=== PATIENT | male | born 1940 | race Caucasian/White ===

== ENCOUNTER → 2016-12-30 | Outpatient (CLI) | payer MEDICARE, OTHER ==
[2016-12-30 14:38] LABS: CHLORIDE,CL 108 mmol/L (98-110); SODIUM,NA 141 mmol/L (136-146)
== END ==
LOC: MW.CHNEURO 13:51
PROVIDERS: ATTEND Psychiatry & Neurology Neuromuscular Medicine
DX: G20 Parkinson's disease (principal); R25.9 Unspecified abnormal involuntary movements
CPT/HCPCS: 36415; 80048; 84443; 99204

== ENCOUNTER 2017-10-28 09:41 | Day surgery (SDC) | payer MEDICARE, OTHER ==
[~2017-10-28 09:41] MED LIST: Bupivacaine 0.25%/EPINEPHrine 1:200,000 10 ML SDV INJECT ONE; Bupivacaine 25%/EPINEPHrine/PF 30 ML ONE; Lactated Ringers 1,000 ML IV SCH; Lidocaine 2% 5 ML SDV ONE; Propofol 200 MG/20 ML SDV ONE; Sodium Chloride 0.9% 20 ML ONE; ceFAZolin 1 GM Vial ONE; ceFAZolin 2 GM in Premix Bag 1 BAG IV ONE; fentaNYL 100 MCG/2 ML SDV ONE; traMADol 50 MG Tab PO PRN
[2017-10-28] MEDS ORDERED: Tetracaine 0.5% Ophth Soln 15 ML Bottle ONE (10:11)
--- NOTE | 2017-10-28 10:19 | PCM.PREANE ---
Preanesthetic Assessment - Anesthesia/Transfusion/Family Hx Anesthesia History: Prior Anesthesia Without Reaction Family History of Anesthesia Reaction: No Transfusion History: No Prior Transfusion(s) - Review of Systems General: No Symptoms Pulmonary: No Symptoms Cardiovascular: No Symptoms Gastrointestinal: No Symptoms Neurological: Other (tremor from parkinsons, last dose of meds 8-9 pm yest, on qid meds, stakes no problems if he missed a dose.) Other: Reports: None - Physical Assessment NPO Status Date: 10/27/17 NPO Status Time: 21:00 O2 Sat by Pulse Oximetry: 97 Respiratory Rate: 16 Vital Signs: Last Vital Signs Temp 37.1 C 10/28/17 10:03 Pulse 86 10/28/17 10:03 Resp 16 10/28/17 10:03 BP 134/65 10/28/17 10:03 Pulse Ox 97 10/28/17 10:03 Height: 1.8 m Weight: 73.482 kg - Allergies Allergies/Adverse Reactions: Allergies Allergy/AdvReac Type Severity Reaction Status Date / Time No Known Allergies Allergy Verified 10/25/17 13:45 PreAnesthesia Questionnaire HEENT History: Reports: Cataract Other HEENT History: has upper and lower removable partial dentures Neurological History: Reports: Parkinson's Oncologic (Cancer) History: Reports: Basal Cell Carcinoma - Past Surgical History HEENT Surgical History: Reports: Cataract Surgery Musculoskeletal Surgical History: Reports: Shoulder Surgery Other Musculoskeletal Surgeries/Procedures:: RTCR - SUBSTANCE USE Smoking Status *Q: Never Smoker Number of Drinks Per Day: 2 Recreational Drug Use History: No - HOME MEDS Home Medications: Home Meds Brimonidine Tartrate [Alphagan P 0.1% Ophth Soln] 1 drop EYEBOTH ASDIRECTED [History] Carbidopa/Levodopa [Carbidopa-Levo 25-100 MG ODT] 1 tab PO QID 10/25/17 [History ] Latanoprost [Xalatan 0.005% Ophth Soln] 1 drop EYEBOTH ASDIRECTED 10/25/17 [ History] - CURRENT (IN HOUSE) MEDS Current Meds: Current Medications Lactated Ringer's (Ringers, Lactated) 1,000 mls @ 125 mls/hr IV ASDIRECTED [facility] Last Admin: 10/28/17 10:04 Dose: 125 mls/hr Tramadol HCl (Ultram) 50 mg PO Q4H PRN PRN Reason: Pain Discontinued Medications Bupivacaine HCl/Epinephrine Bitart (Marcaine 0.25%/Epinephrine 1:200,000) 10 ml INJECT ONETIME ONE Stop: 10/28/17 08:01 Cefazolin Sodium (Ancef) Confirm Administered Dose 2 gm .ROUTE .STK-MED ONE Stop: 10/28/17 09:04 Fentanyl (Sublimaze) Confirm Administered Dose 100 mcg .ROUTE .STK-MED ONE Stop: 10/28/17 09:04 Cefazolin Sodium/Dextrose 2 gm (/ Premix) 50 mls @ 100 mls/hr IV ONETIME ONE Stop: 10/28/17 08:29 Bupivacaine HCl/Epinephrine Bitart (Sensorc Mpf 0.25%-Epi [id number]) Confirm Administered Dose 30 mls @ as directed .ROUTE .STK-MED ONE Stop: 10/28/17 07:31 Sodium Chloride (Normal Saline) Confirm Administered Dose 20 mls @ as directed .ROUTE .STK-MED ONE Stop: 10/28/17 09:04 Lidocaine (Xylocaine-Mpf 2%) Confirm Administered Dose 5 ml .ROUTE .STK-MED ONE Stop: 10/28/17 09:03 Propofol (Diprivan 20 Ml) Confirm Administered Dose 200 mg .ROUTE .STK-MED ONE Stop: 10/28/17 09:03 Tetracaine (Tetracaine 0.5% Ophth Soln) Confirm Administered Dose 15 ml .ROUTE .STK-MED ONE Stop: 10/28/17 10:12
[2017-10-28] MEDS ORDERED: fentaNYL 100 MCG/2 ML SDV ONE (10:45)
--- NOTE | 2017-10-28 12:11 | PCM.POSTAN ---
POST ANESTHESIA ASSESSMENT - MENTAL STATUS Mental Status: Alert, Oriented - RESPIRATORY Respiratory Status: Respiratory Rate WNL, Airway Patent, O2 Saturation Stable - CARDIOVASCULAR CV Status: Pulse Rate WNL, Blood Pressure Stable - GASTROINTESTINAL GI Status: No Symptoms - POST OP HYDRATION Hydration Status: Adequate & Stable
--- NOTE | 2017-10-28 12:11 | PCM48HPAN ---
Post Anesthesia Note - EVALUATION WITHIN 48HRS OF ANESTHETIC Vital Signs in Normal Range: Yes Patient Participated in Evaluation: Yes Respiratory Function Stable: Yes Airway Patent: Yes Cardiovascular Function Stable: Yes Hydration Status Stable: Yes Pain Control Satisfactory: Yes Nausea and Vomiting Control Satisfactory: Yes Mental Status Recovered: Yes Resp Rate: 16
--- NOTE | 2017-10-31 12:51 | PCM.OPNOTE ---
- General Post-Op/Procedure Note Date of Surgery/Procedure: 10/28/17 Operative Procedure(s): excision of right ear vascular lesion 2x1cm with underlying cartilage and simple 2cm closure. right face basal cell with frozen sections 3x1.2cm with intermediate 3cm closure. Pre Op Diagnosis: right ear vascular lesion and right cheek basal cell Post-Op Diagnosis: Same Anesthesia Technique: Local, MAC Primary Surgeon: Adriana Martino Wheel And Pinion Inspector: Shelbi Tam Complications: None Condition: Good
--- NOTE | 2017-10-31 20:44 | OR ---
SURGEON: YEISON PARISI MD DATE OF PROCEDURE: 10/28/2017 PREOPERATIVE DIAGNOSIS: Right ear vascular lesion, right cheek basal cell. POSTOPERATIVE DIAGNOSIS: Right ear vascular lesion, right cheek basal cell. PROCEDURES: 1. Excision of right ear vascular lesion, 2 x 1 cm total excision with underlying cartilage involvement and simple 2 cm closure. 2. Right face basal cell, frozen sections 3 x 1.2 cm total excision with intermediate 3 cm closure. ASSISANT: PEDRO PABLO Adame. INDICATIONS: Mr. Boyce is a 77-year-old gentleman seen today for evaluation of right ear lesion and right cheek basal cell. Risks and benefits of excision were discussed and he was in agreement to proceed. Risks were including, but not limited to, bleeding, infection, damage to underlying or overlying structures, possible need for future interventions, possible scarring. PROCEDURE IN DETAIL: After informed consent was obtained and placed on the chart, the patient was brought to the operating theater and after adequate MAC anesthesia was obtained, the area was prepped and draped in normal fashion. A time-out was completed to confirm side and site. 0.25% Marcaine with epinephrine was then injected into the area in a field block and once adequately hemostasis, the right ear lesion was excised in elliptical fashion involving the underlying cartilage as well. This was sent for pathology and permanent sections. Once adequately excised, meticulous hemostasis was obtained and minor undermining was then undertaken to allow primary closure in a simple fashion for a total length of 2 cm simple closure. Attention was then paid to the right face basal cell and the lesion was excised in elliptical fashion for a total length of 3 x 1.2 cm. This area was meticulously hemostased and the lesion was sent for frozen sections. Frozen sections came back as negative and meticulous hemostasis was obtained in the underlying tissue. The wound was then closed in an intermediate fashion with several deep 3-0 Monocryl stitches and a running subcuticular for the skin. The patient tolerated this well and the wound on the cheek was dressed with Steri- Strips. The ear dressed with bacitracin. All counts needles were correct at the end of the case. FOLLOWUP INSTRUCTIONS: The patient will see us in 7-10 days for suture removal or for re-evaluation. Sooner if any problems, questions, or concerns. REASON FOR TOWEL FOLDER: Was prepping, draping, and closure assistance. ILA / ALYSIA /[id number] MTDD
== END 2017-10-28 12:10 | disposition home or self-care (01) ==
LOC: MW.SDS 09:41
PROVIDERS: ATTEND Plastic Surgery
DX: C44.319 Basal cell carcinoma of skin of other parts of face (principal); D48.5 Neoplasm of uncertain behavior of skin; H26.9 Unspecified cataract; G20 Parkinson's disease; R25.9 Unspecified abnormal involuntary movements; M65.30 Trigger finger, unspecified finger; Z79.899 Other long term (current) drug therapy; Z87.891 Personal history of nicotine dependence
CPT/HCPCS: 11442; 11643; 12052; 88305; 88312; 88331; J0690; J3010; J7120; 00300; A9270-GY; J2704

== ENCOUNTER 2022-03-28 20:13 | Emergency (ER) | payer MEDICARE ==
[2022-03-28 21:33] LABS: CARBON DIOXIDE,CO2 23.6 mmol/L (21.0-32.0); POTASSIUM,K 4.3 mmol/L (3.5-5.1)
[2022-03-28] MEDS ORDERED: Acetaminophen 500 MG Tab PO ONE (21:36)
[2022-03-28] MEDS ORDERED: Carbidopa/Levodopa 25-100 MG Tab PO ONE (22:53)
[2022-03-29] MEDS ORDERED: Lactated Ringers 1,000 ML IV STA ×2 (00:19→01:10)
[2022-03-29] MEDS ORDERED: Iopamidol 755 MG/ML 500 ML Multipack Bottle IVPUSH ONE (01:46)
[2022-03-29] MEDS ORDERED: Midodrine 5 MG Tab PO STA (03:23)
[2022-03-29] MEDS ORDERED: Carbidopa/Levodopa 25-100 MG Tab PO ONE (06:00)
[2022-03-29 06:32] LABS: CARBON DIOXIDE,CO2 29.1 mmol/L (21.0-32.0)
[2022-03-29] MEDS ORDERED: Aspirin 81 MG Tab.Chew PO ONE (06:39)
[2022-03-29] MEDS ORDERED: Enoxaparin 60 MG/0.6 ML Syringe SUBCUT ONE (10:09)
[2022-03-29] MEDS ORDERED: Piperacillin/Tazobactam 4.5 GM in Sodium Chloride 0.9% 100 ML IV ONE (10:29)
== END 2022-03-29 11:15 ==
LOC: MW.ED 20:13
DX: U07.1 COVID-19 (principal); I95.9 Hypotension, unspecified; I21.4 Non-ST elevation (NSTEMI) myocardial infarction; E46 Unspecified protein-calorie malnutrition; E88.09 Other disorders of plasma-protein metabolism, not elsewhere classified
CPT/HCPCS: 36415; 70450; 71045; 71275; 80053; 83605; 83735; 84443; 84484; 85025; 85610; 87040; 93005; 96361; 96365; 96372; 99285; A9270; J1650; J2543; J7120; Q9967; U0002; 93010; 99291; 99292